=== PATIENT | female | born 1995 | race Caucasian/White ===

== ENCOUNTER 2020-08-07 11:51 | Emergency (ER) | payer BC ==
[2020-08-07] MEDS ORDERED: Sodium Chloride 0.9% 10 ML Syringe FLUSH PRN (12:18)
[2020-08-07] MEDS ORDERED: Ondansetron 4 MG/2 ML SDV IVPUSH ONE (12:21)
[2020-08-07] MEDS ORDERED: Sodium Chloride 0.9% 1,000 ML IV ONE (12:21)
--- NOTE | 2020-08-07 12:28 | EDM.PDOC ---
ED HPI GENERAL MEDICAL PROBLEM - General Chief Complaint: Fever Stated Complaint: DEHYDRATED Time Seen by Provider: 08/07/20 12:00 Source of Information: Reports: Patient History Limitations: Reports: No Limitations, Other (ED vital signs reveal a temp of 101, pulse 103, respiratory rate 18, blood pressure 120/94, pulse ox 100% on room air) - History of Present Illness INITIAL COMMENTS - FREE TEXT/NARRATIVE: 25-year-old female presents to the emergency department after being sent here by [place] [facility] this morning. Patient states that she developed fever chills and a severe headache 2 days ago. She states that on the following day she developed upper abdominal pain that she described as achy and nausea. Of note, she has a history of diabetes type 1 for which she wears an insulin pump and a continuous glucose monitor. She states that over the course the past couple of days her blood sugars have been elevated in the 170s and she has been unable to bring them down however today it has been in the 120s to 130s. She does state that she has been trying to drink as much as possible however she feels dehydrated and thirsty all the time and she has been voiding more than she has been drinking. She also states that she does have "kidney "pain however she states that she feels this is a chronic issue for her. Also denies the possibility of as she does have a Mirena IUD in place. She denies any vomiting or diarrhea. - Related Data Allergies Allergy/AdvReac Type Severity Reaction Status Date / Time No Known Allergies Allergy Verified 08/07/20 12:06 Home Meds: Home Meds Ondansetron [Zofran ODT] 4 mg PO Q6H PRN #10 tab.dis 08/07/20 [Rx] Past Medical History HEENT History: Reports: Other (See Below) Other HEENT History: Glasses and contacts Musculoskeletal History: Reports: Other (See Below) Other Musculoskeletal History: Hx of right hand fractures Endocrine/Metabolic History: Reports: Diabetes, Type I Social & Family History - Tobacco Use Tobacco Use Status *Q: Never Tobacco User - Caffeine Use Caffeine Use: Reports: Tea - Recreational Drug Use Recreational Drug Use: No ED ROS GENERAL - Review of Systems Review Of Systems: See Below Constitutional: Reports: Fever, Chills, Fatigue. Denies: Diaphoresis, Decreased Appetite HEENT: Reports: No Symptoms Respiratory: Reports: No Symptoms Cardiovascular: Reports: No Symptoms Endocrine: Reports: Fatigue, Polyuria GI/Abdominal: Reports: Abdominal Pain (Generalized), Nausea. Denies: Constipation, Diarrhea, Vomiting : Reports: Flank Pain, Frequency Musculoskeletal: Reports: No Symptoms Skin: Reports: No Symptoms Neurological: Reports: Headache Psychiatric: Reports: No Symptoms Hematologic/Lymphatic: Reports: No Symptoms Immunologic: Reports: No Symptoms ED EXAM, GI/ABD - Physical Exam Exam: See Below Exam Limited By: No Limitations General Appearance: Alert, WD/WN, Mild Distress Ears: Normal External Exam, Hearing Grossly Normal Nose: Normal Inspection Throat/Mouth: Normal Inspection, Normal Lips, Normal Voice, No Airway Compromise Head: Atraumatic, Normocephalic Neck: Normal Inspection, Supple, Non-Tender, Full Range of Motion Respiratory/Chest: No Respiratory Distress, Lungs Clear, Normal Breath Sounds, No Accessory Muscle Use, Chest Non-Tender Cardiovascular: Normal Peripheral Pulses, Regular Rate, Rhythm, No Edema, No Murmur GI/Abdominal Exam: Normal Bowel Sounds, Soft, No Distention, Tender (Bilateral lower quadrants) (Female) Exam: Deferred Rectal (Female) Exam: Deferred Back Exam: Normal Inspection, Full Range of Motion Extremities: Normal Inspection, Normal Range of Motion, Non-Tender, No Pedal Edema, Normal Capillary Refill Neurological: Alert, Oriented, Normal Cognition Psychiatric: Normal Affect, Normal Mood Skin Exam: Warm, Dry, Intact, Normal Color, No Rash Lymphatic: No Adenopathy Course - Vital Signs Text/Narrative:: 25-year-old female presents with a 2-day history of fever, chills, headache, and abdominal pain. Patient was seen at [place] [facility] this morning however they felt she needed to be seen in the emergency department. Of note, patient states that her mom did have Covid 3 weeks ago and she had visited her mom a few days ago. Patient denies any vomiting or diarrhea however she said with the abdominal discomfort it has made her feel nauseated. She has been more thirsty than normal and voiding more frequently than normal however denies any dysuria with this. She also denies any shortness of breath or cough at this time. I have ordered labs, saline lock, normal saline 1 L as the patient is likely dehydrated and Zofran to treat the nausea. Last Recorded V/S: Last Vital Signs Temp 101 F H 08/07/20 12:03 Pulse 103 H 08/07/20 12:03 Resp 18 08/07/20 12:03 BP 120/94 H 08/07/20 12:03 Pulse Ox 100 08/07/20 12:03 - Orders/Labs/Meds Orders: Active Orders 24 hr Category Date Time Status Sodium Chloride 0.9% [Saline Flush] Med 08/07/20 12:18 Active 10 ml FLUSH ASDIRECTED PRN Saline Lock Insert [OM.PC] Stat Oth 08/07/20 12:18 Ordered Medication Orders Sodium Chloride (Sodium Chloride 0.9% 10 Ml Syringe) 10 ml FLUSH ASDIRECTED PRN PRN Reason: Keep Vein Open Last Admin: 08/07/20 13:24 Dose: 10 ml Documented by: ANABELLA Labs: Laboratory Tests 08/07/20 08/07/20 08/07/20 Range/Units 12:40 12:40 13:55 WBC 7.81 (3.98-10.04) K/mm3 RBC 4.47 (3.98-5.22) M/mm3 Hgb 13.4 (11.2-15.7) gm/dl Hct 39.2 (34.1-44.9) % MCV 87.7 (79.4-94.8) fl MCH 30.0 (25.6-32.2) pg MCHC 34.2 (32.2-35.5) g/dl RDW Std Deviation 37.7 (36.4-46.3) fL Plt Count 266 (182-369) K/mm3 MPV 9.6 (9.4-12.3) fl Neut % (Auto) 80.7 H (34.0-71.1) % Lymph % (Auto) 7.3 L (19.3-51.7) % [place] % (Auto) 11.3 (4.7-12.5) % Eos % (Auto) 0.5 L (0.7-5.8) Baso % (Auto) 0.1 (0.1-1.2) % Neut # (Auto) 6.30 H (1.56-6.13) K/mm3 Lymph # (Auto) 0.57 L (1.18-3.74) K/mm3 [place] # (Auto) 0.88 H (0.24-0.36) K/mm3 Eos # (Auto) 0.04 (0.04-0.36) K/mm3 Baso # (Auto) 0.01 (0.01-0.08) K/mm3 Sodium 143 (136-145) mEq/L Potassium 3.8 (3.5-5.1) mEq/L Chloride 105 (98-107) mEq/L Carbon Dioxide 27 (21-32) mEq/L Anion Gap 14.8 (5-15) BUN 7 (7-18) mg/dL Creatinine 0.8 (0.55-1.02) mg/dL Est Cr Clr Drug Dosing 105.45 mL/min Estimated GFR (MDRD) > 60 (>60) mL/min BUN/Creatinine Ratio 8.8 L (14-18) Glucose 98 (74-106) mg/dL Calcium 9.1 (8.5-10.1) mg/dL Magnesium 1.8 (1.8-2.4) mg/dl Total Bilirubin 0.3 (0.2-1.0) mg/dL AST 17 (15-37) U/L ALT 33 (14-59) U/L Alkaline Phosphatase 77 (46-116) U/L C-Reactive Protein 10.9 H* (<1.0) mg/dL Total Protein 7.3 (6.4-8.2) g/dl Albumin 3.6 (3.4-5.0) g/dl Globulin 3.7 gm/dL Albumin/Globulin Ratio 1.0 (1-2) Urine Color (Yellow) Urine Appearance (Clear) Urine pH (5.0-8.0) Ur Specific [place] (1.005-1.030) Urine Protein (Negative) Urine Glucose (UA) (Negative) Urine Ketones (Negative) Urine Occult Blood (Negative) Urine Nitrite (Negative) Urine Bilirubin (Negative) Urine Urobilinogen (0.2-1.0) Ur Leukocyte Esterase (Negative) Urine HCG, Qual (NEGATIVE) Influenza Type A RNA Negative (NEGATIVE) Influenza Type B RNA Negative (NEGATIVE) SARS-CoV-2 RNA (SOTO) Negative (NEGATIVE) 08/07/20 08/07/20 Range/Units 14:00 14:00 WBC (3.98-10.04) K/mm3 RBC (3.98-5.22) M/mm3 Hgb (11.2-15.7) gm/dl Hct (34.1-44.9) % MCV (79.4-94.8) fl MCH (25.6-32.2) pg MCHC (32.2-35.5) g/dl RDW Std Deviation (36.4-46.3) fL Plt Count (182-369) K/mm3 MPV (9.4-12.3) fl Neut % (Auto) (34.0-71.1) % Lymph % (Auto) (19.3-51.7) % [place] % (Auto) (4.7-12.5) % Eos % (Auto) (0.7-5.8) Baso % (Auto) (0.1-1.2) % Neut # (Auto) (1.56-6.13) K/mm3 Lymph # (Auto) (1.18-3.74) K/mm3 [place] # (Auto) (0.24-0.36) K/mm3 Eos # (Auto) (0.04-0.36) K/mm3 Baso # (Auto) (0.01-0.08) K/mm3 Sodium (136-145) mEq/L Potassium (3.5-5.1) mEq/L Chloride (98-107) mEq/L Carbon Dioxide (21-32) mEq/L Anion Gap (5-15) BUN (7-18) mg/dL Creatinine (0.55-1.02) mg/dL Est Cr Clr Drug Dosing mL/min Estimated GFR (MDRD) (>60) mL/min BUN/Creatinine Ratio (14-18) Glucose (74-106) mg/dL Calcium (8.5-10.1) mg/dL Magnesium (1.8-2.4) mg/dl Total Bilirubin (0.2-1.0) mg/dL AST (15-37) U/L ALT (14-59) U/L Alkaline Phosphatase (46-116) U/L C-Reactive Protein (<1.0) mg/dL Total Protein (6.4-8.2) g/dl Albumin (3.4-5.0) g/dl Globulin gm/dL Albumin/Globulin Ratio (1-2) Urine Color Light yellow (Yellow) Urine Appearance Clear (Clear) Urine pH 6.5 (5.0-8.0) Ur Specific [place] 1.010 (1.005-1.030) Urine Protein Negative (Negative) Urine Glucose (UA) Negative (Negative) Urine Ketones 2+ H (Negative) Urine Occult Blood Negative (Negative) Urine Nitrite Negative (Negative) Urine Bilirubin Negative (Negative) Urine Urobilinogen 0.2 (0.2-1.0) Ur Leukocyte Esterase Negative (Negative) Urine HCG, Qual Negative (NEGATIVE) Influenza Type A RNA (NEGATIVE) Influenza Type B RNA (NEGATIVE) SARS-CoV-2 RNA (SOTO) (NEGATIVE) Meds: Medications Generic Name Dose Route Start Last Admin Trade Name Freq PRN Reason Stop Dose Admin Sodium Chloride 10 ml 08/07/20 12:18 08/07/20 13:24 Sodium Chloride 0.9% 10 Ml Syringe FLUSH 10 ml ASDIRECTED PRN Administration Keep Vein Open Discontinued Medications Generic Name Dose Route Start Last Admin Trade Name Freq PRN Reason Stop Dose Admin Hydromorphone HCl 0.25 mg 08/07/20 14:08 08/07/20 14:46 Hydromorphone 0.5 Mg/0.5 Ml Syringe IVPUSH 08/07/20 14:09 0.25 mg ONETIME ONE Administration Sodium Chloride 1,000 mls @ 999 mls/hr 08/07/20 12:21 08/07/20 13:02 Normal Saline IV 08/07/20 13:21 999 mls/hr ONETIME ONE Administration Ketorolac Tromethamine 30 mg 08/07/20 12:35 08/07/20 13:02 Ketorolac 30 Mg/Ml Sdv IVPUSH 08/07/20 12:36 30 mg ONETIME ONE Administration Metoclopramide HCl 5 mg 08/07/20 14:51 08/07/20 14:55 Metoclopramide 10 Mg/2 Ml Sdv IVPUSH 08/07/20 14:52 5 mg ONETIME ONE Administration Ondansetron HCl 4 mg 08/07/20 12:21 08/07/20 13:02 Ondansetron 4 Mg/2 Ml Sdv IVPUSH 08/07/20 12:22 4 mg ONETIME ONE Administration - Re-Assessments/Exams Free Text/Narrative Re-Assessment/Exam: 08/07/20 14:14 Hematology is unremarkable, chemistry reveals a sodium of 143, potassium 3.8, anion gap 14.8, BUN 7, creatinine 0.8, glucose 98, magnesium 1.8, C-reactive protein 10.9 08/07/20 14:14 Patient states that headache pain is only down to a 7 from an 8. I have ordered for the patient to receive 1 dose of Dilaudid. 08/07/20 14:15 Nothing acute is appreciated on portable chest xray 08/07/20 15:32 Urinalysis shows 2+ ketones and is otherwise unremarkable, urine is negative, influenza a and B are negative and SARS Covid 2 is also negative. Patient states she is feeling much better. Abdominal pain has resolved. And headache pain is down to a 1. Pt states that she feels like she is ready to go home. I will send her with a prescription for Zofran and strict return precautions should abdominal pain return. Departure - Departure Time of Disposition: 15:33 Disposition: Home, Self-Care 01 Condition: Good Clinical Impression: Viral infection - Discharge Information Prescriptions: Ondansetron [Zofran ODT] 4 mg PO Q6H PRN #10 tab.dis PRN Reason: Nausea/Vomiting Referrals: PCP,None [Primary Care Provider] - Forms: ED Department Discharge Additional Instructions: You were seen in the Emergency Department today with complaints of headache, nausea, and abdominal pain. Labs were completed and you received IV fluids and nausea medication. Labs were essentially unremarkable. You do not have Covid, influenza A or influenza B. Urinalysis was unremarkable for infection as well. It is likely you have a viral infection and this will resolve on its own. I have sent a prescription for nausea medication to your pharmacy. You can take 1 tab every 6 hours as needed for nausea. Please allow 30 to 45 minutes after taking this medication to eat or drink. Recommend drinking clear liquids for the next 24 hours then then advance to a bland diet. May alternate Tylenol and ibuprofen every 4 hours for the next 48 hours to keep headache pain under control. Should your condition worsen or change or your abdominal pain returns do not hesitate to return to the emergency department. Sepsis Event Note (ED) - Evaluation Sepsis Screening Result: No Definite Risk - Focused Exam Vital Signs: Vital Signs Temp Pulse Resp BP Pulse Ox 08/07/20 12:03 101 F H 103 H 18 120/94 H 100 - My Orders Last 24 Hours: My Active Orders 08/07/20 12:18 Sodium Chloride 0.9% [Saline Flush] 10 ml FLUSH ASDIRECTED PRN Saline Lock Insert [OM.PC] Stat - Assessment/Plan Last 24 Hours: My Active Orders 08/07/20 12:18 Sodium Chloride 0.9% [Saline Flush] 10 ml FLUSH ASDIRECTED PRN Saline Lock Insert [OM.PC] Stat
[2020-08-07] MEDS ORDERED: Ketorolac 30 MG/ML SDV IVPUSH ONE (12:35)
[2020-08-07] MEDS ORDERED: HYDROmorphone 0.5 MG/0.5 ML Syringe IVPUSH ONE (14:08)
--- NOTE | 2020-08-07 14:22 | CR ---
Chest: Portable view of the chest was obtained. Comparison: No prior chest imaging is available. Heart size and mediastinum are normal. Lungs are clear with no acute parenchymal change. Bony structures show nothing acute. Impression: 1. Nothing acute is seen on portable chest x-ray. Diagnostic code #1
[2020-08-07] MEDS ORDERED: HYDROmorphone 0.5 MG/0.5 ML Syringe ONE (14:45)
[2020-08-07] MEDS ORDERED: Metoclopramide 10 MG/2 ML SDV IVPUSH ONE (14:51)
[2020-08-07] MEDS ORDERED: Metoclopramide 10 MG/2 ML SDV ONE (14:54)
[2020-08-07 15:17] LABS: CORONAVIRUS COVID-19 NAA NEGATIVE (NEGATIVE)
== END 2020-08-07 15:54 | disposition home or self-care (01) ==
LOC: JD.ED 11:51 → JD.MS 13:40 → UNDOADMIN 13:40 → JD.ED 15:54
DX: B34.9 Viral infection, unspecified (principal); R11.0 Nausea; E10.9 Type 1 diabetes mellitus without complications; Z20.822 Contact with and (suspected) exposure to COVID-19
CPT/HCPCS: 0240U; 36415; 71045; 80053; 81003; 81025; 83735; 85025; 86140; 96374; 96375; 99284; J1170; J1885; J2405; J2765; J7030

== ENCOUNTER 2020-11-14 19:12 | Emergency (ER) | payer BC ==
[2020-11-14] MEDS ORDERED: Doxycycline 100 MG Cap PO ONE (19:32)
[2020-11-14] MEDS ORDERED: Diphtheria,Pertussis(Acell),Tetanus Vaccine 0.5 ML Syringe IM ONE (19:32)
--- NOTE | 2020-11-14 19:36 | EDM.PDOC ---
ED HPI GENERAL MEDICAL PROBLEM - General Chief Complaint: Lower Extremity Injury/Pain Stated Complaint: STEPPED ON A NAIL-RIGHT FOOT Time Seen by Provider: 11/14/20 19:22 Source of Information: Reports: Patient History Limitations: Reports: No Limitations - History of Present Illness INITIAL COMMENTS - FREE TEXT/NARRATIVE: 25-year-old female presents to the ED with a puncture wound to the mid plantar surface of her right foot. This occurred about an hour and a half before coming into the ED. She stepped on a nail inadvertently which punctured through her cowboy boot-like shoe and into her right midfoot. No active bleeding at present. She has been tippy toe walking. There is a good chance that her boots were contaminated with cow maneure . Therefore in spite of her having a tetanus booster likely given at age 19 she will receive Tdap today. She denies any other injuries. Of note the patient is an insulin-dependent diabetic type I. Onset: Today, Sudden Onset Date: 11/14/20 Onset Time: 17:45 Duration: Hour(s):, Constant Location: Reports: Lower Extremity, Right (Puncture wound mid) Quality: Reports: Ache ( plantar surface right foot), Throbbing Severity: Moderate (4 out of 10.) Improves with: Reports: Rest Worsens with: Reports: Other (Worse with weightbearing.) Context: Reports: Trauma (Accidentally stepped on a 3-1/2 inch nail.). Denies: Activity, Exercise, Lifting, Sick Contact Associated Symptoms: Reports: No Other Symptoms Treatments [employer]: Reports: Acetaminophen Right Feet Pain Score (Numeric/FACES): 8 - Related Data Allergies Allergy/AdvReac Type Severity Reaction Status Date / Time No Known Allergies Allergy Verified 08/07/20 12:06 Home Meds: Home Meds Ondansetron [Zofran ODT] 4 mg PO Q6H PRN #10 tab.dis 08/07/20 [Rx] Doxycycline [Vibra-Tabs] 100 mg PO Q12HR #14 tab 11/14/20 [Rx] Insulin Pump Cartridge [T:Slim X2] 50 unit INJECT DAILY 11/14/20 [History] Past Medical History HEENT History: Reports: Other (See Below) Other HEENT History: Glasses and contacts Musculoskeletal History: Reports: Other (See Below) Other Musculoskeletal History: Hx of right hand fractures Endocrine/Metabolic History: Reports: Diabetes, Type I Social & Family History - Caffeine Use Caffeine Use: Reports: Tea - Living Situation & Occupation Living situation: Reports: Single Review of Systems - Review of Systems Review Of Systems: See Below Constitutional: Reports: No Symptoms Eyes: Reports: No Symptoms Ears: Reports: No Symptoms Nose: Reports: No Symptoms Mouth/Throat: Reports: No Symptoms Respiratory: Reports: No Symptoms Cardiovascular: Reports: No Symptoms GI/Abdominal: Reports: No Symptoms Genitourinary: Reports: No Symptoms Musculoskeletal: Reports: No Symptoms Skin: Reports: No Symptoms Neurological: Reports: No Symptoms Psychiatric: Reports: No Symptoms ED EXAM, GENERAL - Physical Exam Exam: See Below Exam Limited By: No Limitations General Appearance: Alert, WD/WN, No Apparent Distress, Other (Temperature is 36.9 degrees. Heart rate 63 in sinus respiratory is 20 with O2 sats of 100%. BP 123/87) Eye Exam: Bilateral Eye: Normal Inspection, PERRL Extremities: Other (Examination was limited to the right foot. She suffered a solitary puncture wound to the lateral midfoot with no active bleeding. Wound is compliant with stepping on a nail. Surrounding swelling is evident. She has full range of motion of the foot and ankle.) Neurological: Alert, Oriented, CN II-XII Intact, Normal Cognition Psychiatric: Normal Affect, Normal Mood Skin Exam: Warm, Dry, Normal Color, No Rash, Other (puncture wound Rt foot. ) Course - Vital Signs Last Recorded V/S: Last Vital Signs Temp 36.9 C 11/14/20 19:28 Pulse 63 11/14/20 19:28 Resp 20 11/14/20 19:28 BP 123/87 11/14/20 19:28 Pulse Ox 100 11/14/20 19:28 - Orders/Labs/Meds Orders: Active Orders 24 hr Category Date Time Status Vaccines to be Administered [RC] PER UNIT ROUTINE Care 11/14/20 19:32 Active Foot 2V Rt [CR] Stat Exams 11/14/20 19:39 Ordered Meds: Medications Discontinued Medications Generic Name Dose Route Start Last Admin Trade Name Freq PRN Reason Stop Dose Admin Diphtheria/Tetanus/Acell Pertussis 0.5 ml 11/14/20 19:32 11/14/20 19:42 Diphtheria,Pertussis(Acell),Tetanus Vaccine 0.5 Ml Syringe IM 11/14/20 19:33 0.5 ml .ONCE ONE Administration Doxycycline Hyclate 200 mg 11/14/20 19:32 11/14/20 19:43 Doxycycline 100 Mg Cap PO 11/14/20 19:33 200 mg ONETIME ONE Administration - Radiology Interpretation Free Text/Narrative:: 25-year-old female presents to the ED with a solitary puncture wound from a nail to the lateral aspect of her midfoot that occurred an hour and a half before coming to the ED. She believes it was a 3-1/2 inch nail that she stepped on went through her cowboy boot and into her foot. Plan wound to be cleansed after soaking in Betadine and saline solution. Topical antibiotic and Band-Aid and wrap will be applied. Patient advised it will be more tender tomorrow. Decision made to update her tetanus diphtheria and pertussis vaccine due to her boots being contaminated with cow maneuver. Two-view x-ray of the right foot to be obtained. She will be given doxycycline 200 mg by mouth now. She will then be started on doxycycline 100 mg by mouth twice daily for the next 7 days to prevent secondary wound infection. - Re-Assessments/Exams Free Text/Narrative Re-Assessment/Exam: 11/14/20 20:02 2 view x-ray of the right foot reveals no bony injuries or significant tracking from foreign body penetration deep into the soft tissues. Patient will be discharged home. She will be placed on doxycycline 100 mg by mouth twice daily for the next 7 days to prevent secondary wound infection. She will apply topical antibiotic such as bacitracin or Polysporin on the wound daily to prevent secondary wound infection. Departure - Departure Time of Disposition: 20:11 Disposition: Home, Self-Care 01 Condition: Fair Clinical Impression: Puncture wound of plantar aspect of right foot Qualifiers: Encounter type: initial encounter Qualified Code(s): S91.331A - Puncture wound without foreign body, right foot, initial encounter - Discharge Information *PRESCRIPTION DRUG MONITORING PROGRAM REVIEWED*: Not Applicable *COPY OF PRESCRIPTION DRUG MONITORING REPORT IN PATIENT SARAH: Not Applicable Prescriptions: Doxycycline [Vibra-Tabs] 100 mg PO Q12HR #14 tab Instructions: Puncture Wound, [id number] Referrals: PCP,Not In Area [Primary Care Provider] - Forms: ED Department Discharge Additional Instructions: Evaluation in the emergency room in regards to a puncture wound to the plantar surface of the mid right foot that occurred about an hour and a half prior to coming to the emergency room. Your tetanus diphtheria and pertussis vaccine was updated today and is good for the next 10 years. Wound was soaked in saline and Betadine. Treatment at home is to daily cleanse the wound with soap and water. Showering is okay. Topical antibiotic such as bacitracin or Polysporin should be applied to the wound once daily and covered with a bandage to keep clean until healed. Motrin 600 mg every 6 hours as needed to relieve knee pain and inflammation. Note the foot will become much more tender over the next 24 to 36 hours and then slowly start to improve. May apply ice pack to the area tonight for 1/2-hour out of every 4 hours tonight and tomorrow. Elevate the foot as much as possible tonight and tomorrow. Antibiotic is to be doxycycline 100 mg by mouth twice daily for the next 7 days to prevent secondary wound infection. You would need to return to medical care if any signs of infection develop such as increased redness, swelling or obvious pus formation. Sepsis Event Note (ED) - Evaluation Sepsis Screening Result: No Definite Risk - Focused Exam Vital Signs: Vital Signs Temp Pulse Resp BP Pulse Ox 11/14/20 19:28 36.9 C 63 20 123/87 100 - My Orders Last 24 Hours: My Active Orders 11/14/20 19:32 Vaccines to be Administered [RC] PER UNIT ROUTINE 11/14/20 19:39 Foot 2V Rt [CR] Stat - Assessment/Plan Last 24 Hours: My Active Orders 11/14/20 19:32 Vaccines to be Administered [RC] PER UNIT ROUTINE 11/14/20 19:39 Foot 2V Rt [CR] Stat
--- NOTE | 2020-11-17 10:43 | CR ---
Right foot: 2 views of the right foot were obtained. Comparison: No prior foot exam. No plantar spur is seen. Joint spaces are fairly well preserved. No acute fracture or other bony abnormality is seen. No radiopaque foreign object is identified. Impression: 1. Nothing acute is seen on 2 view right foot exam. Diagnostic code #1
== END 2020-11-14 20:22 | disposition home or self-care (01) ==
LOC: JD.ED 19:12
DX: S91.331A Puncture wound without foreign body, right foot, initial encounter (principal); E10.9 Type 1 diabetes mellitus without complications; Z23 Encounter for immunization; W45.0XXA Nail entering through skin, initial encounter
CPT/HCPCS: 73620; 90471; 90715; 99283; A9270